=== PATIENT | male | born 1930 | race Caucasian/White ===

== ENCOUNTER 2017-01-12 08:38 | Observation (INO) | payer OTHER ==
[~2017-01-12] VITALS: Ht 170.2 cm; Wt 68.5 kg
[2017-01-12] MEDS ORDERED: AMLODIPINE BES2.5 MG PO (09:10)
[2017-01-12] MEDS ORDERED: CITALOPRAM HBR10 MG PO (09:11)
[2017-01-12] MEDS ORDERED: XYZAL5 MG PO (09:12)
[2017-01-12] MEDS ORDERED: TOPROL XL50 MG PO (09:12)
[2017-01-12] MEDS ORDERED: ATORVASTATIN CA40 MG PO (09:13)
[2017-01-12] MEDS ORDERED: SINGULAIR10 MG PO (09:13)
[2017-01-12] MEDS ORDERED: SPIRIVA1 INHALATI IH (09:14)
[2017-01-12] MEDS ORDERED: ADVAIR 250/501 DISK IH (09:14)
[2017-01-12] MEDS ORDERED: PRESERVISION T1 EACH PO (09:15)
[2017-01-12] MEDS ORDERED: NASACORT10.8 ML BOTH NARES (09:15)
[2017-01-12] MEDS ORDERED: OXYGEN MC (09:16)
[2017-01-12 09:46] LABS: BASOPHIL COUNT 0.1 K/uL (0-0.1); EOSINOPHIL (%) 3.2 % (0-5); EOSINOPHIL COUNT 0.3 K/uL (0-0.3); HEMATOCRIT 46.5 % (38.0-50.0); IMMATURE GRANULOCYTE (%) 0.5 % (0.0-0.7); IMMATURE GRANULOCYTE COUNT 0.1 K/uL; INSTRUMENT ABS NEUTROPHIL CT 6.2 K/uL; MCH 30.3 PG (29.0-34.0); MCHC 32.5 G/DL (30.0-36.0); MCV 93.2 FL (86-99); MEAN PLAT.VOLUME 9.5 uM^3 (9.0-12.4); MONOCYTE (%) 6.6 % (3-12); MONOCYTE COUNT 0.6 K/uL (0-0.8); NEUTROPHIL (%) 67.1 % (45-76); NEUTROPHIL COUNT 6.2 K/uL (1.8-6.4); PLATELET COUNT 257 K/uL (156-360); RBC DIS.WIDTH-CV 13.5 % (11.8-14.6); RBC DIS.WIDTH-SD 46.4 % (39-53); RED BLOOD COUNT 4.99 M/uL (4.00-5.50); WHITE BLOOD COUNT 9.2 K/uL (4.1-10.2)
[2017-01-12 10:15] LABS: CHLORIDE 107 mEq/L (99-109); POTASSIUM 4.3 mEq/L (3.7-5.4); SODIUM 143 mEq/L (136-147)
[2017-01-12 10:17] LABS: GLUCOSE 102 mg/dL (70-99)
[2017-01-12 10:19] LABS: ANION GAP 11 MEQ/L (2-14); TOTAL BILIRUBIN 1.1 mg/dL (0.0-1.0)
[2017-01-12 10:21] LABS: ALKALINE PHOSPHATASE 94 IU/L (3-129); GFR ESTIMATE (CALCULATED) 51 mL/min/
[2017-01-12 10:22] LABS: UREA NITROGEN (BUN) 17 mg/dL (9-23)
[2017-01-12 13:23] LABS: ADD MIUA? NO; BILIRUBIN NEGATIVE; BLOOD NEGATIVE; COLOR YELLOW ((YELLOW)); GLUCOSE (STRIP) NEGATIVE; KETONES 5; LEUKOCYTES NEGATIVE; NITRITE NEGATIVE; PROTEIN (STRIP) NEGATIVE; SPECIFIC GRAVITY 1.018 (1.000-1.030); UCUL ADDED? NO; UROBILINOGEN 0.2 MG/DL (0.2-1.0)
[2017-01-12] MEDS ORDERED: ASPIR 8181 M1 PO (15:17)
[2017-01-12 16:47] VITALS: BP 174/74
[2017-01-12 18:36] LABS: HEMATOCRIT 44.6 % (38.0-50.0); MCHC 31.8 G/DL (30.0-36.0); MCV 94.3 FL (86-99); MEAN PLAT.VOLUME 9.1 uM^3 (9.0-12.4); PLATELET COUNT 248 K/uL (156-360); RBC DIS.WIDTH-CV 13.5 % (11.8-14.6); RBC DIS.WIDTH-SD 47.3 % (39-53); RED BLOOD COUNT 4.73 M/uL (4.00-5.50); WHITE BLOOD COUNT 11.6 K/uL (4.1-10.2)
[2017-01-12 19:08] LABS: TROP-I INTERPRETATION NEGATIVE; TROPONIN-I 0.02 ng/mL (0.0-0.30)
[2017-01-12 19:28] VITALS: BP 134/62
[2017-01-12 23:19] VITALS: BP 110/53
[2017-01-13 03:11] VITALS: BP 105/53
[2017-01-13 07:53] LABS: HEMATOCRIT 40.1 % (38.0-50.0); MCH 30.4 PG (29.0-34.0); MCHC 31.9 G/DL (30.0-36.0); MCV 95.2 FL (86-99); MEAN PLAT.VOLUME 9.8 uM^3 (9.0-12.4); PLATELET COUNT 198 K/uL (156-360); RBC DIS.WIDTH-CV 13.9 % (11.8-14.6); RBC DIS.WIDTH-SD 48.6 % (39-53); RED BLOOD COUNT 4.21 M/uL (4.00-5.50); WHITE BLOOD COUNT 11.6 K/uL (4.1-10.2)
[2017-01-13 08:14] LABS: ANION GAP 7 MEQ/L (2-14); CHLORIDE 112 MEQ/L (99-109); GFR ESTIMATE (CALCULATED) 56 mL/min/; GLUCOSE 110 mg/dL (70-99); POTASSIUM 4.2 MEQ/L (3.7-5.4); SAMPLE HEMOLYSIS CHECK 0; SAMPLE ICTERIC CHECK 0; SAMPLE LIPEMIA CHECK 0; SODIUM 142 MEQ/L (136-147); UREA NITROGEN (BUN) 19 mg/dL (9-23)
[2017-01-13 08:20] VITALS: BP 126/84
[2017-01-13 08:38] LABS: TROP-I INTERPRETATION NEGATIVE; TROPONIN-I 0.02 ng/mL (0.0-0.30)
[2017-01-13 12:34] VITALS: BP 102/58
[2017-01-13] MEDS ORDERED: PROTONIX40 MG PO (15:23)
[2017-01-13 15:29] VITALS: BP 111/59
== END 2017-01-13 16:09 ==
LOC: EME 08:38 → EDOF 15:18 → 5WEST 16:37
PROVIDERS: Emergency Medicine; Hospitalist; Specialist
DX: K92.0 Hematemesis (principal); N17.9 Acute kidney failure, unspecified; I12.9 Hypertensive chronic kidney disease with stage 1 through stage 4 chronic kidney disease, or unspecified chronic kidney disease; N18.9 Chronic kidney disease, unspecified; I25.10 Atherosclerotic heart disease of native coronary artery without angina pectoris; J44.9 Chronic obstructive pulmonary disease, unspecified; K21.9 Gastro-esophageal reflux disease without esophagitis; E78.5 Hyperlipidemia, unspecified; F32.9 Major depressive disorder, single episode, unspecified; Z95.1 Presence of aortocoronary bypass graft; Z87.891 Personal history of nicotine dependence
CPT/HCPCS: 70360; 71010; 71020; 80048; 80053; 81003; 84484; 85025; 85027; 93005; 94640; 94640 76; 94799; 99281; 99285; C9113; G0378; G8987 GO CJ; G8988 GO CH; G8989 CJ; J2405; J7030

== ENCOUNTER 2017-01-13 15:41 | Inpatient (IN) | payer OTHER ==
[~2017-01-13] VITALS: Ht 170.2 cm; Wt 65.1 kg
[~2017-01-13 15:41] MED LIST: ADVAIR 250/501 DISK IH; AMLODIPINE BES2.5 MG PO; ASPIR 8181 M1 PO; ATORVASTATIN CA40 MG PO; CITALOPRAM HBR10 MG PO; NASACORT10.8 ML BOTH NARES; OXYGEN MC; PRESERVISION T1 EACH PO; PROTONIX40 MG PO; SINGULAIR10 MG PO; SPIRIVA1 INHALATI IH; TOPROL XL50 MG PO; XYZAL5 MG PO
[2017-01-13 16:20] VITALS: BP 111/60
[2017-01-14] VITALS: BP 109/54
[2017-01-14 05:13] VITALS: BP 102/55
[2017-01-14 05:26] LABS: HEMATOCRIT 36.9 % (38.0-50.0); MCH 30.3 PG (29.0-34.0); MCV 94.6 FL (86-99); MEAN PLAT.VOLUME 9.8 uM^3 (9.0-12.4); PLATELET COUNT 171 K/uL (156-360); RBC DIS.WIDTH-CV 13.7 % (11.8-14.6); RBC DIS.WIDTH-SD 46.9 % (39-53); WHITE BLOOD COUNT 9.3 K/uL (4.1-10.2)
[2017-01-14 05:52] LABS: ALKALINE PHOSPHATASE 53 IU/L (3-129); ANION GAP 5 MEQ/L (2-14); CHLORIDE 108 MEQ/L (99-109); GFR ESTIMATE (CALCULATED) 56 mL/min/; GLUCOSE 101 mg/dL (70-99); SAMPLE HEMOLYSIS CHECK 0; SAMPLE ICTERIC CHECK 0; SAMPLE LIPEMIA CHECK 0; SODIUM 139 MEQ/L (136-147); TOTAL BILIRUBIN 1.1 MG/DL (0.0-1.0); UREA NITROGEN (BUN) 19 mg/dL (9-23)
[2017-01-14 15:59] VITALS: BP 107/53
[2017-01-15 05:24] VITALS: BP 118/58
[2017-01-15 15:19] VITALS: BP 119/60
[2017-01-16 05:37] VITALS: BP 108/57
[2017-01-16 15:27] VITALS: BP 146/67
[2017-01-17 04:49] VITALS: BP 110/54
[2017-01-17 15:58] VITALS: BP 124/71
[2017-01-18 05:12] VITALS: BP 120/60
[2017-01-18 15:12] VITALS: BP 118/63
[2017-01-19 05:17] VITALS: BP 110/59
[2017-01-19 15:57] VITALS: BP 116/59
[2017-01-20 05:32] VITALS: BP 100/49
[2017-01-20 08:04] VITALS: BP 120/60
[2017-01-20 16:00] VITALS: BP 147/67
[2017-01-21 05:08] VITALS: BP 104/58
[2017-01-21 05:50] LABS: ALKALINE PHOSPHATASE 54 IU/L (3-129); ANION GAP 9 MEQ/L (2-14); CHLORIDE 106 MEQ/L (99-109); GFR ESTIMATE (CALCULATED) 56 mL/min/; GLUCOSE 89 mg/dL (70-99); POTASSIUM 3.9 MEQ/L (3.7-5.4); SAMPLE HEMOLYSIS CHECK 0; SAMPLE ICTERIC CHECK 0; SAMPLE LIPEMIA CHECK 0; SODIUM 141 MEQ/L (136-147); UREA NITROGEN (BUN) 19 mg/dL (9-23)
[2017-01-21 05:53] LABS: HEMATOCRIT 37.5 % (38.0-50.0); MCH 30.4 PG (29.0-34.0); MCHC 32.5 G/DL (30.0-36.0); MCV 93.5 FL (86-99); MEAN PLAT.VOLUME 9.5 uM^3 (9.0-12.4); RBC DIS.WIDTH-CV 13.3 % (11.8-14.6); RBC DIS.WIDTH-SD 45.9 % (39-53); RED BLOOD COUNT 4.01 M/uL (4.00-5.50)
[2017-01-21 05:54] LABS: PLATELET COUNT 280 K/uL (156-360); WHITE BLOOD COUNT 5.3 K/uL (4.1-10.2)
[2017-01-21 05:58] LABS: TOTAL BILIRUBIN 0.6 MG/DL (0.0-1.0)
[2017-01-21 15:10] VITALS: BP 110/57
[2017-01-22 05:40] VITALS: BP 123/68
[2017-01-22] MEDS ORDERED: POLYETHYLENE GL17 GM PO (12:58)
[2017-01-22] MEDS ORDERED: PROTONIX40 MG PO (12:58)
[2017-01-22] MEDS ORDERED: SENNA PLUS TAB1 EACH PO (12:58)
[2017-01-22] MEDS ORDERED: ADVAIR 250/501 DISK IH (12:58)
[2017-01-22] MEDS ORDERED: SPIRIVA1 INHALATI IH (12:58)
[2017-01-22 15:45] VITALS: BP 134/68
== END 2017-01-22 18:50 | disposition home health service (06) | DRG 945 ==
LOC: 3WEST 15:41
PROVIDERS: Physical Medicine & Rehabilitation Pain Medicine
PROC: F07M0ZZ Range of Motion and Joint Mobility Treatment of Musculoskeletal System - Whole Body (ICD-10-PCS; principal; 2017-01-13)
DX: R53.1 Weakness (principal); R26.2 Difficulty in walking, not elsewhere classified; D64.9 Anemia, unspecified; I12.9 Hypertensive chronic kidney disease with stage 1 through stage 4 chronic kidney disease, or unspecified chronic kidney disease; N18.4 Chronic kidney disease, stage 4 (severe); J98.11 Atelectasis; E46 Unspecified protein-calorie malnutrition; E83.51 Hypocalcemia; I25.10 Atherosclerotic heart disease of native coronary artery without angina pectoris; J44.9 Chronic obstructive pulmonary disease, unspecified; E78.5 Hyperlipidemia, unspecified; K59.00 Constipation, unspecified; K21.9 Gastro-esophageal reflux disease without esophagitis; Z95.1 Presence of aortocoronary bypass graft; Z87.891 Personal history of nicotine dependence
CPT/HCPCS: 71010; 80053; 85027; 94640; 94640 76; 94799; 97110 GO; 97530 GP

== ENCOUNTER 2017-11-02 10:01 | Observation (INO) | payer OTHER ==
[~2017-11-02] VITALS: Ht 170.2 cm; Wt 69.5 kg
[~2017-11-02 10:01] MED LIST changes: +POLYETHYLENE GL17 GM PO; +SENNA PLUS TAB1 EACH PO
[2017-11-02 11:05] LABS: HEMATOCRIT 41.6 % (38.0-50.0); HEMOGLOBIN 13.7 G/DL (12.5-16.6); MCH 30.5 PG (29.0-34.0); MCHC 32.9 G/DL (30.0-36.0); MCV 92.7 FL (86-99); PLATELET COUNT 283 K/uL (156-360); RBC DIS.WIDTH-CV 13.7 % (11.8-14.6); RBC DIS.WIDTH-SD 46.8 % (39-53); RED BLOOD COUNT 4.49 M/uL (4.00-5.50); WHITE BLOOD COUNT 12.1 K/uL (4.1-10.2)
[2017-11-02 11:18] LABS: ALBUMIN 3.1 g/dL (3.2-4.8); CHLORIDE 106 mEq/L (99-109); POTASSIUM 3.8 mEq/L (3.7-5.4); SODIUM 144 mEq/L (136-147)
[2017-11-02 11:20] LABS: GLUCOSE 122 mg/dL (70-99); TOTAL PROTEIN 6.9 g/dL (6.4-8.3)
[2017-11-02 11:22] LABS: TOTAL BILIRUBIN 0.6 mg/dL (0.0-1.0)
[2017-11-02 11:24] LABS: ALKALINE PHOSPHATASE 66 IU/L (3-129); CREATININE 1.3 mg/dL (0.6-1.3); GFR ESTIMATE (CALCULATED) 55 mL/min/ (58.99-99999)
[2017-11-02 11:25] LABS: AST (GOT) 22 IU/L (2-34); UREA NITROGEN (BUN) 27 mg/dL (9-23)
[2017-11-02 11:27] LABS: ALT (GPT) 19 IU/L (3-49)
[2017-11-02 15:54] VITALS: BP 103/61
[2017-11-02 17:35] VITALS: BP 129/60
[2017-11-02 19:38] VITALS: BP 152/74
[2017-11-02 23:26] VITALS: BP 107/53
[2017-11-03 03:46] VITALS: BP 104/56
[2017-11-03 06:24] LABS: BASOPHIL (%) 0.1 % (0-1); EOSINOPHIL (%) 0 % (0-5); HEMATOCRIT 36.4 % (38.0-50.0); HEMOGLOBIN 11.8 G/DL (12.5-16.6); IMMATURE GRANULOCYTE (%) 0.8 % (0.0-0.7); LYMPHOCYTE (%) 12.1 % (15-42); LYMPHOCYTE COUNT 1.1 K/uL (1.0-2.8); MCH 29.6 PG (29.0-34.0); MCHC 32.4 G/DL (30.0-36.0); MCV 91.5 FL (86-99); MONOCYTE (%) 4.9 % (3-12); MONOCYTE COUNT 0.4 K/uL (0-0.8); NEUTROPHIL (%) 82.1 % (45-76); NEUTROPHIL COUNT 7.4 K/uL (1.8-6.4); PLATELET COUNT 278 K/uL (156-360); RBC DIS.WIDTH-CV 13.5 % (11.8-14.6); RBC DIS.WIDTH-SD 46.1 % (39-53); RED BLOOD COUNT 3.98 M/uL (4.00-5.50)
[2017-11-03 06:48] LABS: CHLORIDE 103 MEQ/L (99-109); CREATININE 1.3 MG/DL (0.6-1.3); GFR ESTIMATE (CALCULATED) 55 mL/min/ (58.99-99999); GLUCOSE 104 mg/dL (70-99); SODIUM 139 MEQ/L (136-147); UREA NITROGEN (BUN) 23 mg/dL (9-23)
[2017-11-03 06:51] LABS: POTASSIUM 4.7 MEQ/L (3.7-5.4)
[2017-11-03 08:38] LABS: APPEARANCE CLEAR ((CLEAR)); BILIRUBIN NEGATIVE; BLOOD NEGATIVE; COLOR YELLOW ((YELLOW)); GLUCOSE (STRIP) NEGATIVE; KETONES NEGATIVE; LEUKOCYTES NEGATIVE; NITRITE NEGATIVE; PROTEIN (STRIP) NEGATIVE; SPECIFIC GRAVITY 1.029 (1.000-1.030); UROBILINOGEN 0.2 MG/DL (0.2-1.0)
[2017-11-03 08:42] VITALS: BP 129/60
[2017-11-03] MEDS ORDERED: XYZAL5 MG PO (09:24)
[2017-11-03 11:32] VITALS: BP 120/68
[2017-11-03] MEDS ORDERED: PREDNISONE20 MG PO (15:13)
[2017-11-03] MEDS ORDERED: CEFTIN500 MG PO (15:14)
[2017-11-03 16:31] VITALS: BP 130/62
== END 2017-11-03 19:07 | disposition home or self-care (01) ==
LOC: EME 10:01 → EDOF 13:06 → 3EAST 13:06 → ENRESERV 13:18 → EDOF 13:41 → ENRESERV 14:35 → 3EAST 16:04
PROVIDERS: Hospitalist; Nurse Practitioner Family
DX: J96.21 Acute and chronic respiratory failure with hypoxia (principal); J18.9 Pneumonia, unspecified organism; J44.0 Chronic obstructive pulmonary disease with (acute) lower respiratory infection; Z99.81 Dependence on supplemental oxygen; Z91.81 History of falling; I10 Essential (primary) hypertension; I25.10 Atherosclerotic heart disease of native coronary artery without angina pectoris; Z95.1 Presence of aortocoronary bypass graft; Z87.891 Personal history of nicotine dependence
CPT/HCPCS: 71260; 74177; 80048; 80053; 81003; 85025; 85027; 87040; 87070; 87205; 87449; 93005; 94640; 94640 76; 94760; 94799; 99202; 99281; 99285; G0378; J0456; J0696; J1644; J2270; J7030; J7512